=== PATIENT | female | born 1955 | race Caucasian/White ===

== ENCOUNTER 2017-02-05 18:39 | Emergency (ER) | payer OTHER ==
[~2017-02-05] VITALS: Ht 157.5 cm; Wt 54.5 kg
[~2017-02-05 18:39] MED LIST: DIAZ5TAB PO; DIAZ5TAB3 PO; HYDR-4003 PO; TRAM50TA2 PO
[2017-02-05 18:45] VITALS: BP 145/93; RESP 16; O2SAT 97
--- NOTE | 2017-02-05 19:29 | ED.REPORT ---
HPI-Dental/Mouth Prob Date of Service Feb 05, 2017 ED Provider: Dr. Teixeira Pt is a generally healthy 61 y/o female presenting to the ED c/o right-sided dental pain and facial swelling onset today. She has been taking Augmentin for 2 days after seeing a dentist and being diagnosed with dental abscess. Her facial swelling seemed to decrease somewhat after the antibiotics but today the patient noticed that she was developing some neck swelling which she was told to look out for. She c/o associated mild intermittent fevers. She denies dysphagia, dyspnea. Nursing Notes Stated Complaint: DENTAL ABSCESS Chief Complaint: ENT & Mouth Nursing Notes Reviewed: Yes Allergies: Coded Allergies: No Known Allergies (Unverified Allergy, Unknown, 07/03/15) Scheduled PRN Diazepam (Valium) 5 Mg Tablet 5 MG PO Q8H PRN PRN For Pain Diazepam (Diazepam) 5 Mg Tablet 5 MG PO TID PRN PRN For Anxiety Hydrocodone-Acetaminophen 5-325 mg (Hydrocodone-Acetaminophen 5-325 mg) 1 Each Tablet 1 TABLET PO Q4H PRN PRN For Pain Hydrocodone-Acetaminophen 5-325 mg (Hydrocodone-Acetaminophen 5-325 mg) 1 Each Tablet 1 TABLET PO Q4H PRN PRN For Pain Tramadol (Tramadol) 50 Mg Tablet 50 MG PO Q4H PRN PRN For Pain General Time Seen by MD: 19:28 Chief Complaint Tooth pain Hx Obtained From: Patient Arrived By: Walk-in Past Medical History Past Medical History Notes: NANDO Lakhani Past Medical History Dental abscess sacral fractures Anxiety Depression Past Surgical History none reported Family History noncontributory Smoking History Current Every Day Smoker, Light Tobacco Smoker Social History Alcohol Use: "Social" Drug Use: THC Other Social History: Good social support, Lives with children, Local resident Ambulatory Status Independent Review of Systems Review of Systems Note: +neck swelling Constitutional: Reports: Fever, Denies: Chills Ears / Nose / Throat: Reports: Toothache Respiratory: Denies: Non-productive cough, Shortness of breath GI: Denies: Dysphagia Complete sys rev & neg: except as marked. Physical Exam Initial Vital Signs Vital Signs (First) Date Time Temp Pulse Resp B/P Pulse Ox O2 Delivery O2 Flow Rate FiO2 02/05/17 18:45 36.6 97 16 145/93 97 Room Air Initial VS: Reviewed, Vital signs normal Head / Eyes: Atraumatic, Normocephalic, PERRL Abdomen / GI: Soft, No distention Extremities: Vascular intact, Neuro intact, No swelling Skin: Warm, Dry, No cyanosis Neurologic: Alert, Oriented, Nonfocal Psychiatric: Mood/affect normal, Behavior normal, Normal thought content ENT: Atraumatic, Airway patent Mild right facial swelling Tender over right face Mild trismus Poor dentition Incisors, canines, and premolars are stumps No sublingual swelling Neck: Atraumatic, Supple, No meningismus, Full range of motion Adenopathy present General/Constitutional: Awake, Alert, No acute distress, Well appearing, Cooperative, Not toxic appearing Respiratory / Chest: Atraumatic, Breath sounds NL, Breath sounds = bilat, No respiratory distress, No rales, No rhonchi, No wheezing, No retractions, No stridor Cardiovascular: Heart rate NL, Regular rhythm, Heart sounds NL, No gallop, No murmurs, No rubs Re-Eval/Medical Decision Med Decision/Clinical Course Does not appear ill, airway intact, neck supple. Pt reassured, did no want labs/imaiging at this point. Re-Evaluation/Progress : Time of Eval: 19:38 Re-Evaluation/Progress Note: Pt rechecked. Discussed obtaining CT imaging vs discharge and close follow-up. She does not wish to have more imaging at this point and will certainly come back if her condition worsens. Informed pt of plan for treatment. Pt understands and agrees with plan for treatment. F/U instructions and RTER warnings given. All questions addressed. Counseled Regarding: Diagnosis, Lab results, Need for follow-up, When/why to return to ED Discharge & Departure Primary Impression: Infected dental caries Disposition: Home Discharge Condition All VS Reviewed: Yes Condition: Stable Additional Instructions: Emergency Department evaluation included interview and examination. We discussed lab testing and imaging and elected to hold off on that for the moment. Finish the Augmentin as previously prescribed. May use hydrocodone/ APAP one to 2 every 4 hours as needed for pain. Apply warm pack to the jaw. Return emergency Department for shaking chills increasing swelling and difficulty swallowing. Referrals: Bryce Shaw MD (PCP) Scribe Attestation Portions of this note were transcribed by Salbador Navarrete. I, Dr. Teixeira personally performed the history, physical exam and medical decision-making; I reviewed and confirmed the accuracy of the information in the transcribed note. Signed by Nidhi Galvan, 02/05/171944 copies to: Bryce Shaw MD, Donald L MD Feb 05, 2017 19:29 SALBADOR NAVARRETE Feb 05, 2017 19:36
[2017-02-05] MEDS ORDERED: HYDR-4003 PO (19:41)
== END 2017-02-05 19:35 | disposition home or self-care (01) ==
LOC: SED 18:39
DX: K02.9 Dental caries, unspecified (principal); K04.7 Periapical abscess without sinus; R22.1 Localized swelling, mass and lump, neck; R50.9 Fever, unspecified; F41.8 Other specified anxiety disorders; F17.200 Nicotine dependence, unspecified, uncomplicated